=== PATIENT | female | born 1975 | race Caucasian/White ===

== ENCOUNTER → 2023-06-05 12:08 | Outpatient (CLI) | payer OTHER, SELFPAY ==
--- NOTE | 2023-06-05 12:09 | DI.RAD.S_ITS ---
PROCEDURE: XR KNEE LT 3V INDICATIONS: Left knee pain acute on chronic TECHNIQUE: 3 views of the knee were acquired. COMPARISON: [facility], , KNEE 3V LEFT, 12/11/2014, 15:42. FINDINGS: Bones: No fractures or dislocations. No suspicious bony lesions. Pedunculated osteochondroma of the medial femur metadiaphysis. Tricompartmental joint space narrowing with associated osteophytosis. Soft tissues: Small joint effusion. No suspicious soft tissue calcifications. IMPRESSION: Moderate tricompartmental osteoarthritis. Kellgren-Lee Grade 2. Pedunculated osteochondroma of the medial femoral metadiaphysis. If this specific site is tender, recommend MRI with contrast to exclude sarcomatous transformation. Dictated by: Rodney Sue M.D. on 06/05/2023 at 13:06 Approved by: Rodney Sue M.D. on 06/05/2023 at 13:08
== END ==
PROVIDERS: Referring Provider Student in an Organized Health Care Education/Training Program; Visit Provider Student in an Organized Health Care Education/Training Program
DX: M17.12 Unilateral primary osteoarthritis, left knee (principal); D16.9 Benign neoplasm of bone and articular cartilage, unspecified; M25.562 Pain in left knee
CPT/HCPCS: 73562

== ENCOUNTER → 2025-04-18 11:37 | Outpatient (CLI) | payer OTHER, SELFPAY ==
--- NOTE | 2025-04-18 11:41 | DI.RAD.S_ITS ---
PROCEDURE: XR HIP W PEL IF DONE RT 2V INDICATIONS: RT HIP PAIN TECHNIQUE: AP pelvis with lateral view(s) of the right hip(s). COMPARISON: None. FINDINGS: Bones: No fractures or dislocations. Advanced osteoarthritic degenerative change of the right hip includes joint space loss, marginal osteophytosis and acetabular and femoral subchondral sclerosis and cystic degeneration. Pelvic ring appears intact. No suspicious bony lesions. Soft tissues: The visualized bowel gas pattern is normal. No suspicious soft tissue calcifications. IMPRESSION: Degenerative change of the right hip without evidence of acute bony abnormality. Dictated by: Sabino Lenz M.D. on 04/18/2025 at 22:18 Approved by: Sabino Lenz M.D. on 04/18/2025 at 22:19
== END ==
PROVIDERS: Referring Provider Family Medicine; Visit Provider Family Medicine
DX: M25.551 Pain in right hip (principal)
CPT/HCPCS: 73502